=== PATIENT | male | born 1945 | race Caucasian/White ===

== ENCOUNTER → 2017-03-30 | Outpatient (CLI) | payer MEDICARE ==
[~2017-03-30] MED LIST: ALLO100T PO; ASPI81TA23 PO; DULO1CAP2 PO; HYDR-3516; HYDR25TA5 PO; LISI40TA PO; MOBI7.5T PO; TAMS0.4C4 PO; TRAZ100T10 PO
[2017-03-30 09:16] LABS: MEAN CELL VOLUME 86.7 FL (80.0-100.0); MEAN CORPUSCULAR HEMOGLOBIN 29.1 PG (27.0-34.0); MEAN CORPUSCULAR HGB CONC 33.5 % (32.0-36.0); PLATELET COUNT 210 TH/MM3 (150-450); RED BLOOD COUNT 5.19 MIL/MM3 (4.50-5.90); RED CELL DISTRIBUTION WIDTH 13.5 % (11.6-17.2); REVIEW FLAG FINAL; WHITE BLOOD COUNT 6.3 TH/MM3 (4.0-11.0)
[2017-03-30 09:20] LABS: BLOOD, URINE NEG (NEG); GLUCOSE,URINE NEG (NEG); KETONE, URINE NEG (NEG); NITRITE,URINE NEG (NEG); URINE COLOR YELLOW (YELLW/STRAW)
[2017-03-30 09:27] LABS: BACTERIA, URINE OCC /hpf; HYALINE CAST, URINE 0-2 /lpf (RARE); MUCUS URINE FEW /lpf (OCC); RBC, URINE 0-3 /hpf (0-3); WBC, URINE 0-2 /hpf (0-5)
[2017-03-30 09:28] LABS: COMMENT (UR) CULT NOT INDICATED; CULTURE IF INDICATED CULT NOT INDICATED
[2017-03-30 09:30] LABS: APTT (PATIENT) 26.2 SEC (24.3-30.1); INTERNATIONAL NORMALIZED RATIO 0.9 RATIO; PROTHROMBIN TIME - PATIENT 10.4 SEC (9.8-11.6)
[2017-03-30 09:42] LABS: ANION GAP 7 MEQ/L (5-15); AST (GOT) 21 U/L (15-37); BICARBONATE 28.7 MEQ/L (21.0-32.0); BLOOD UREA NITROGEN 21 MG/DL (7-18); CHLORIDE 105 MEQ/L (98-107); GLOMERULAR FILTRATION RATE 98 ML/MIN (>89); GLUCOSE,FASTING 104 MG/DL (74-99); POTASSIUM 3.7 MEQ/L (3.5-5.1); SODIUM (NA) 141 MEQ/L (136-145)
[2017-03-30 09:45] LABS: ALKALINE PHOSPHATASE 63 U/L (45-117); ALT (GPT) 25 U/L (12-78); TOTAL BILIRUBIN ADULT 0.8 MG/DL (0.2-1.0)
== END ==
LOC: CPRE 07:58
PROVIDERS: ATTEND Surgery
DX: Z01.812 Encounter for preprocedural laboratory examination (principal); Z79.01 Long term (current) use of anticoagulants
CPT/HCPCS: 36415; 80053; 81001; 85027; 85610; 85730

== ENCOUNTER 2017-04-06 08:03 | Inpatient (IN) | payer MEDICARE ==
--- NOTE | 2017-03-31 14:02 | MH ---
cc: Jeromy RODGERS M.D. DATE OF ADMISSION: 04/06/2017 ADMITTING DIAGNOSIS: Osteoarthritic degeneration left knee now being admitted for left total knee arthroplasty. ADMISSION HISTORY AND PHYSICAL This pleasant 71-year-old male is being admitted today for left total knee arthroplasty due to severe painful osteoarthritic degeneration left knee. PAST MEDICAL HISTORY: Other past history has arthritis of both knees. He has a history of hypertension. Sciatica. Depression. CURRENT MEDICATIONS Include 1. Duloxetine. 2. Tamsulosin. 3. Lisinopril. 4. He is off his anti-inflammatories. PAST SURGICAL HISTORY: Previous surgeries include no surgical history. REVIEW OF SYSTEMS Noncontributory. FAMILY HISTORY Noncontributory. SOCIAL HISTORY: Does not smoke. Drinks alcohol occasionally. ALLERGIES NO KNOWN DRUG ALLERGIES PHYSICAL EXAMINATION IN GENERAL: We find a 71-year-old male well-developed, well-nourished oriented x3 complain of pain as an deformity left knee. VITAL SIGNS: Blood pressure 128/782, pulse 68 regular, respirations 18, temperature 98.2, pulse oximetry 98% on room air. HEAD, EYES, EARS, NOSE, AND THROAT: Eyes Pupils equal, round, reactive to light and accommodation, extraocular movement intact. Ear, nose, mouth clear. NECK: Supple LUNGS: Clear. HEART: Regular rate. ABDOMEN: The abdomen soft. Positive bowel sounds, nontender. EXTREMITIES: Reveals the left knee to have tenderness, loss of range of motion -5 to 80 degrees of flexion. No medial lateral random post instability, genu valgus deformity noted. He is neurovascularly to his toes. IMPRESSION Osteoarthritic degeneration left knee. PLAN Admission left total knee arthroplasty today. The patient understands procedure well and risks involved understands to use Hibiclens scrub and Bactroban preoperatively and is given a prescription postoperative pain anticoagulation control in the office plans on going home after surgical stay in the hospital. MD KRISH Hutchins/shea /1:41 PM /2:00 PM
[2017-04-05 16:05] VITALS: BP 140/90; PULSE 75; RESP 18; TEMP 96.2; O2SAT 99
[~2017-04-06] VITALS: Ht 175.3 cm; Wt 90.2 kg
[~2017-04-06 08:03] MED LIST changes: -HYDR-3516
[2017-04-06] MEDS ORDERED: POVIDONE IODINE 5% (ANTISEPSIS KIT) 4 APPLICATIONS EACH NARE PRN (09:00)
[2017-04-06] MEDS ORDERED: EXPAREL PERI-ARTICULAR INJECTION (TOTAL VOL. 120 ML) P-ARTICULR SCH ×2 (09:00)
[2017-04-06] MEDS ORDERED: CHLORHEXIDINE GLUCONATE 4% SOLN 120 ML BTL TOPICAL SCH (09:00)
[2017-04-06] MEDS ORDERED: VANCOMYCIN 1000 MG/NS 250 ML (for <70 kg) IV SCH ×2 (09:00)
[2017-04-06] MEDS ORDERED: CHLORHEXIDINE GLUCONATE 2 % 1 PACK (2 CLOTHS) TOPICAL PRN (09:00)
[2017-04-06] MEDS ORDERED: LACTATED RINGER'S 1000 ML IV PRN (09:00)
[2017-04-06] MEDS ORDERED: DEXAMETHASONE SOD PHOS 20 MG/5 ML VIAL IV SCH (09:00)
[2017-04-06] MEDS ORDERED: SODIUM CHLORID 0.9% 500 ML IV PRN (09:00)
[2017-04-06] MEDS ORDERED: ceFAZolin 2 GM PREMIX 50 ML IV SCH (09:00)
[2017-04-06] MEDS ORDERED: METOPROLOL TARTRATE 25 MG TAB PO PRN (09:00)
[2017-04-06] MEDS ORDERED: TRANEXAMIC ACID INJ 902 MG in SODIUM CHLORIDE 0.9% INJ 100 ML IV SCH ×2 (09:00→12:00)
[2017-04-06] MEDS ORDERED: ceFAZolin INJ 1,000 MG VIAL ONE (09:17)
[2017-04-06] MEDS ORDERED: diphenhydrAMINE HCL 50 MG/ML VIAL IV PUSH PRN (10:30)
[2017-04-06] MEDS ORDERED: SODIUM CHLORIDE 0.9% FLUSH 5 ML FLUSH IVF PRN (10:30)
[2017-04-06] MEDS ORDERED: ACETAMINOPHEN/HYDROcodone 325 MG/7.5 MG TAB PO PRN (10:30)
[2017-04-06] MEDS ORDERED: ACETAMINOPHEN 325 MG TAB PO PRN (10:30)
[2017-04-06] MEDS ORDERED: MORPHINE SULFATE 4 MG/ML INJ IV PUSH PRN (10:30)
[2017-04-06] MEDS ORDERED: ONDANSETRON HCL 4 MG/2 ML VIAL IVP PRN (10:30)
[2017-04-06] MEDS ORDERED: TRANEXAMIC ACID INJ 0 MG in SODIUM CHLORIDE 0.9% INJ 100 ML IV SCH (10:30)
[2017-04-06] MEDS ORDERED: Post-op Orders (for Pharmacy) MISC XX ONE (10:30)
[2017-04-06] MEDS ORDERED: NALOXONE HCL 0.4 MG/ML AMP IV PUSH PRN (10:30)
--- NOTE | 2017-04-06 10:30 | HHI.FF ---
Face to Face Verification Diagnosis: (1) Status post total left knee replacement Physical Therapy Gait training Knee: Total knee, Protocol: Left, Gait training, Full weight bearing Canvas Knee Splint: When in bed & 2 pillows btw thighs Nursing RN: 3 days/week x 2 weeks Nursing: Dressing changes Dressing Changes: Daily dressing change, 4x4s, Gauze, Paper tape I have seen patient Irving Strong on 04/06/17. My clinical findings support the need for the requested home health care services because: Limited ability to care for self High risk of falls I certify that my clinical findings support that this patient is homebound because: Unsteady gait/balance Jeromy Christian MD Apr 06, 2017 10:30
[2017-04-06] MEDS ORDERED: BUPIVACAINE LIPOSOME PF 1.3% 20 ML VIAL ONE (10:34)
[2017-04-06] MEDS ORDERED: WALKER WHEELS/F1 MIS (10:35)
[2017-04-06] MEDS ORDERED: CPMMACHINE (10:35)
[2017-04-06] MEDS ORDERED: COMMODE 3-IN-11 MIS (10:35)
[2017-04-06] MEDS ORDERED: PROPOFOL 500 MG/50 ML INJ 50 ML ONE (11:29)
[2017-04-06] MEDS ORDERED: PROPOFOL 500 MG/50 ML INJ 100 ML ONE (11:30)
[2017-04-06] MEDS ORDERED: DO NOT ADM ANY ANTICOAGULANT DRUGS PRN (14:38)
--- NOTE | 2017-04-06 14:39 | HHI.PR ---
Immediate Post Op Note Procedure Date: Apr 06, 2017 Pre Op Diagnosis: Osteoarthritic degeneration left knee Post Op Diagnosis: Osteoarthritic degeneration left knee Surgeon: Jeromy Christian MD Rn Concurrent Review(s): Danii THURMAN Procedure: Left Total Knee Arthroplasty Complications: none Specimen(s) removed: Left knee synovial tissue/crystals Estimated blood loss: 200cc Anesthesia: Spinal Drains: None IVF Urinary Output (mLs): 0 (no albarran) Tourniquet time (min at mmHg) none Patient to: PACU Patient Condition: Good Implant/Devices: SEE IMPLANT LOG (if applicable) Date/Time of Procedure: SEE SURGICAL CARE RECORD Danii Matthews Apr 06, 2017 14:39
[2017-04-06] MEDS: LACTATED RINGER'S 1000 ML INJ 1,000 ML IV SCH ×2 (15:00→21:08)
--- NOTE | 2017-04-06 15:45 | RADRPT ---
EXAM DATE/TIME: 04/06/2017 13:07 [facility] COMPARISON: No previous studies available for comparison. INDICATIONS : Post op left knee. MEDICAL HISTORY : None. SURGICAL HISTORY : ORIF left knee ENCOUNTER: Initial ACUITY: 1 day PAIN SCORE: 0/10 LOCATION: Left knee FINDINGS: The patient is post left knee arthroplasty. The orthopedic hardware is in excellent position. Alignme nt is good there is no fracture. CONCLUSION: 1. Orthopedic hardware in excellent position. Marvel Gasca MD on April 06, 2017 at 15:41 Board Certified Radiologist. This report was verified electronically.
--- NOTE | 2017-04-06 16:23 | MP ---
cc: Jeromy CHRISTIAN M.D. DATE OF SURGERY 04/06/2017 PREOPERATIVE DIAGNOSIS Severe osteoarthritic degeneration with genu valgus deformity, left knee. POSTOPERATIVE DIAGNOSIS Severe osteoarthritic degeneration with genu valgus deformity, left knee. SURGERY PERFORMED Left total knee arthroplasty using Consensus components with B spoke protocol, sizes were 5 femur, 3 tibia, 10 insert, size 3 patella, two batches of DePuy cement. SURGEON Dr. Christian. GO CART MECHANIC OLMAN Rosas. ANESTHESIA Spinal and abductor canal block. PROCEDURE FOLLOWS After successful induction of anesthesia, the patient is placed on the operating room table in the supine position. The knee is prepped and draped in the usual manner. A tourniquet is inflated at the upper thigh and set to 300 mmHg pressure after exsanguination of the lower extremity. A longitudinal incision is made extending from 3 inches proximal to the superior pole of the patella, across the patella in longitudinal fashion, and down past the insertion of the tibial tubercle into the proximal tibia. The incision is carried down through subcutaneous tissue along the medial aspect of the patella and retinaculum, down through the capsule to expose the knee joint. The patella and patellar tendon are freed up enough to allow the patella to be inverted and retracted off the lateral side of the knee joint. The knee joint is left exposed. Small osteophytes are removed. All soft tissue is removed to allow proper position of the femoral and tibial cutting jig guide. The first femoral jig is then inserted along the distal end of the femur after first measuring to decide whether this is a small, medium, or large component. The notch is then drilled and the tibial cutting guide inserted into the femoral cutting guide, along with the ankle brace to allow for proper measurement of the tibial cutting surface that needed to be resected. Pins are inserted into the tibial cutting jig and femoral cutting jig to hold them in place. An oscillating saw is then used to resect the surface of the tibia. The surface of the tibia is then completely removed using sharp and blunt dissection. The anterior and posterior cuts of the femur are then made as well using an oscillating saw through the cutting guide. All guides are then removed and the varus/valgus angulation cutting guide applied to the femur for proper measurement of the proper amount of valgus. The anterior cutting guide for the femur is then inserted at the anterior femoral cuts made. Next, the first block trial is inserted into the femur to allow for proper condyle drill holes to be made which are then made followed by removal of the bone between the condyles using an oscillating saw as well as the bone removed at the most posterior surface of the condyle. After this, this guide is removed and the chamfer cuts made using the chamfer cutting guide from both anterior and posterior. Next, the femoral trial is then inserted, the tibial surface reflected anterior to expose the tibial surface and a tibial stem guide is inserted after first measuring for a standard, standard plus, large, or large plus surface to be used. After the stem is impacted the trial tibial surface is applied followed by the trial meniscal components. After full range of motion is found with the appropriate length meniscal components varying the patella is prepared by resecting the posterior aspect of the patella using an oscillating saw, inserting a trial. The trial is then removed and the cruciate cutting guide applied using the bur to cut the cruciate cuts. After cruciate cuts are made all trials are removed. The wound is irrigated copiously with antibiotic solution and Water Pik and the actual components inserted into place using Consensus components with B spoke protocol, sizes were 5 femur, 3 tibia, 10 insert, size 3 patella, two batches of DePuy cement. After the cement has hardened and the components are found to have full range of motion with no instability. The wound again is irrigated copiously with antibiotic solution, meticulous hemostasis achieved. 120 cc of Exparel used around the joint for extra control, for extra stability. An extra 45 minutes of surgery was needed to stabilize the knee as it was a rotary instability and the medial compartment. This is stated extra repair using #2 FiberWire and the lateral retinacular release as well and some extra tissue on the lateral side by the lateral collateral ligament was removed for better range of motion and good stability. Also, a sample tissue was taken and sent to lab for analysis for possibility of gout. The deep fascia was approximated with running #2 quill subcutaneous tissue approximated using interrupted and running 2-0 and 3-0 Monocryl sutures. Steri-Strips, sterile dressing, knee immobilizer. No drain utilized. Estimated blood loss 200 cc. Sponge and suture count correct. The patient tolerated the procedure well and left the operating room in satisfactory condition and OLMAN Rosas, was present during the entire procedure to include patient positioning and the procedure. The medical necessity of nurse practitioner personal care assistant was indicated in this case due to the surgical complexity and the case itself. During the surgical case the certified surgical technologist was working the back table while my surgical services tech RAMP JOCKEY was directly assisting me. ESTIMATED BLOOD LOSS: 200 cc. COUNTS: Sponge and suture counts were correct. J. MD KRISH Gamez/EO /2:23 PM /4:02 PM
[2017-04-06 19:29] VITALS: O2SAT 98
[2017-04-06 19:30] VITALS: BP 128/78; PULSE 104; RESP 18; TEMP 96.7; O2SAT 97
[2017-04-06] MEDS ORDERED: traZODone HCL 100 MG TAB PO SCH (21:00)
[2017-04-06] MEDS: SODIUM CHLORIDE 0.9% FLUSH 5 ML FLUSH IVF SCH (21:00)
[2017-04-06] MEDS ORDERED: TEMAZEPAM 15 MG CAP PO PRN (21:00)
[2017-04-06] MEDS: ACETAMINOPHEN/HYDROcodone 325 MG/7.5 MG TAB PO PRN (22:24)
[2017-04-06 23:15] VITALS: BP 118/69; PULSE 94; RESP 18; TEMP 97.6; O2SAT 95
[2017-04-07] MEDS: ACETAMINOPHEN/HYDROcodone 325 MG/7.5 MG TAB PO PRN ×4 (02:57→16:25)
[2017-04-07 03:47] VITALS: BP 108/61; PULSE 90; RESP 18; TEMP 96.7; O2SAT 94
[2017-04-07 06:13] LABS: HEMATOCRIT 38.8 % (39.0-51.0); REVIEW FLAG FINAL
[2017-04-07 08:00] VITALS: BP 128/91; PULSE 105; RESP 18; TEMP 96.9; O2SAT 95
[2017-04-07] MEDS: SODIUM CHLORIDE 0.9% FLUSH 5 ML FLUSH IVF SCH (08:17)
[2017-04-07] MEDS ORDERED: LISINOPRIL 20 MG TAB PO SCH (09:00)
[2017-04-07] MEDS ORDERED: HYDROCHLOROTHIAZIDE 25 MG TAB PO SCH (09:00)
[2017-04-07] MEDS ORDERED: DULoxetine HCl DR 30 MG CAP PO SCH (09:00)
[2017-04-07] MEDS ORDERED: ALLOPURINOL 100 MG TAB PO SCH (09:00)
[2017-04-07] MEDS: LACTATED RINGER'S 1000 ML INJ 1,000 ML IV SCH (09:29)
--- NOTE | 2017-04-07 10:49 | PD.ORT.PN ---
Subjective Subjective Remarks Patient is comfortable with no complaints today. Objective Vitals Vital Signs Date Time Temp Pulse Resp B/P (MAP) Pulse Ox O2 Delivery O2 Flow Rate FiO2 04/07/17 08:00 96.9 105 18 128/91 (103) 95 04/07/17 03:47 96.7 90 18 108/61 (77) 94 04/06/17 23:15 97.6 94 18 118/69 (85) 95 04/06/17 19:30 96.7 104 18 128/78 (95) 97 04/06/17 19:29 98 Nasal Cannula 2.00 04/06/17 15:15 74 16 124/76 (92) 99 Nasal Cannula 2 04/06/17 15:00 75 16 118/71 (87) 99 Nasal Cannula 2 04/06/17 14:45 68 16 116/70 (85) 99 Nasal Cannula 2 04/06/17 14:35 97.2 86 16 111/74 (86) 99 Nasal Cannula 2 I/O 04/06/17 04/06/17 04/06/17 04/07/17 04/07/17 04/07/17 07:00 15:00 23:00 07:00 15:00 23:00 Intake Total 2000 ml 460 ml 580 ml Output Total 200 ml 1900 ml Balance 1800 ml -1440 ml 580 ml Intake Oral 360 ml 480 ml IV Total 2000 ml 100 ml 100 ml Output Urine Total 1900 ml Estimated Blood Loss 200 ml # Voids 0 3 # Bowel Movements 0 0 Result Diagram: 04/07/17 0545 Objective Remarks Patient is sitting in a chair. Dressing is dry and intact. He is neurovascularly intact to his toes. No calf tenderness. Assessment & Plan Ortho Post Op Day #: 1 Problem List: Assessment and Plan Patient is doing very well first day postop. He may continue with physical therapy out of bed in daily wound care. Home today with instructions for physical therapy and outpatient care. Follow up in the office for recheck. Jeromy Christian MD Apr 07, 2017 10:49
--- NOTE | 2017-04-07 10:51 | HHI.DS ---
Discharge Summary Admission Date Apr 06, 2017 at 08:22 Discharge Date: Apr 07, 2017 Admitting Diagnosis Osteoarthritic degeneration with valgus deformity left knee. Diagnosis: (1) Status post total left knee replacement Diagnosis: Principal ICD Codes: Z96.652 - Presence of left artificial knee joint Brief History This is a 71 year old male patient CBC/BMP: 04/07/17 0545 Significant Findings Laboratory Tests Test 04/07/17 05:45 Hematocrit 38.8 % (39.0-51.0) PE at Discharge Patient is sitting in a chair. Dressing is dry and intact. He is neurovascularly intact to his toes. No calf tenderness. Hospital Course The patient underwent a left total knee arthroplasty on day of admission. He received a course of prophylactic IV antibiotics and within 23 hours started on anticoagulation therapy. He continued to improve tolerating food and fluid well. He remained afebrile with vital signs stable. He received physical therapy and wound care. He tolerated by mouth pain meds and was discharged in good condition on the first postoperative day with instructions for home healthcare physical therapy and wound care. He also has an appointment for follow-up in the office. Pt Condition on Discharge: Good Discharge Disposition: Disch w/ Home Health Serv Discharge Instructions Diet Instructions: As Tolerated, No Restrictions Activities You Can Perform: Full Weight Bearing, Shower Only-No Bath Activities to Avoid: Bathing, Driving Jeromy Christian MD Apr 07, 2017 10:51
[2017-04-07 11:35] VITALS: O2SAT 96
[2017-04-07 12:00] VITALS: BP 103/74; PULSE 95; RESP 18; TEMP 96.7; O2SAT 95
[2017-04-07] MEDS ORDERED: APIXABAN 2.5 MG TABLET PO SCH (14:00)
[2017-04-07] MEDS ORDERED: TAMSULOSIN HCL 0.4 MG CAP PO SCH (21:00)
[2017-04-07] MEDS ORDERED: MULTIVITAMINS/MINERALS THERAPEUTIC TAB PO SCH (21:00)
[2017-04-07] MEDS ORDERED: DOCUSATE SODIUM 100 MG CAP PO SCH (21:00)
[2017-04-08] MEDS ORDERED: BACITRACIN OINT 0.9 GM PKT TOP PRN (10:15)
== END 2017-04-07 17:04 | disposition home health service (06) | DRG 470 ==
LOC: HSDI 08:22 → N06A 15:47
PROVIDERS: ADMIT Surgery; ATTEND Surgery
PROC: 0SRD0J9 Replacement of Left Knee Joint with Synthetic Substitute, Cemented, Open Approach (ICD-10-PCS; principal; 2017-04-06 11:06)
DX: M17.12 Unilateral primary osteoarthritis, left knee (principal); M21.062 Valgus deformity, not elsewhere classified, left knee; I10 Essential (primary) hypertension; F32.9 Major depressive disorder, single episode, unspecified
CPT/HCPCS: 73560; 76937; 85014; 85018; 86850; 86900; 86901; 88305; 94150; C1776; C9290; J0690; J1100; J3370; J7050; J7120; L1830

== ENCOUNTER → 2017-10-06 | Outpatient (CLI) | payer MEDICARE ==
[~2017-10-06] MED LIST changes: +COMMODE 3-IN-11 MIS; +CPMMACHINE; +WALKER WHEELS/F1 MIS
[2017-10-06 09:38] LABS: BILIRUBIN, URINE NEG (NEG); BLOOD, URINE NEG (NEG); GLUCOSE,URINE NEG (NEG); HYALINE CAST, URINE 2 /lpf (RARE); KETONE, URINE NEG (NEG); MUCUS URINE FEW /lpf (OCC); NITRITE,URINE NEG (NEG); PH, URINE 5.5 (5.0-8.5); URINE COLOR YELLOW (YELLW/STRAW); URINE LEUKOCYTE ESTERASE NEG (NEG)
[2017-10-06 09:42] LABS: PROTHROMBIN TIME - PATIENT 9.8 SEC (9.8-11.6)
[2017-10-06 09:46] LABS: AUTOMATED NEUTROPHIL # 6.6 TH/MM3 (1.8-7.7); BASOPHIL # 0.1 TH/MM3 (0-0.2); BASOPHIL % 0.6 % (0.0-2.0); EOSINOPHIL # 0.1 TH/MM3 (0-0.4); EOSINOPHIL % 0.9 % (0.0-4.0); HEMATOCRIT 44.7 % (39.0-51.0); HEMOGLOBIN 15.3 GM/DL (13.0-17.0); LYMPH % 18.3 % (9.0-44.0); LYMPHOCYTE # 1.7 TH/MM3 (1.0-4.8); MEAN CELL VOLUME 84.9 FL (80.0-100.0); MEAN CORPUSCULAR HEMOGLOBIN 29.1 PG (27.0-34.0); MEAN CORPUSCULAR HGB CONC 34.2 % (32.0-36.0); MEAN PLATELET VOLUME 9.5 FL (7.0-11.0); MONO % 8.1 % (0.0-8.0); MONOCYTE # 0.7 TH/MM3 (0-0.9); NEUT % 72.1 % (16.0-70.0); PLATELET COUNT 234 TH/MM3 (150-450); RED BLOOD COUNT 5.26 MIL/MM3 (4.50-5.90); RED CELL DISTRIBUTION WIDTH 14.1 % (11.6-17.2); WHITE BLOOD COUNT 9.2 TH/MM3 (4.0-11.0)
[2017-10-06 10:12] LABS: ALKALINE PHOSPHATASE 77 U/L (45-117); TOTAL BILIRUBIN ADULT 0.7 MG/DL (0.2-1.0); TOTAL PROTEIN 7.8 GM/DL (6.4-8.2)
[2017-10-06 10:14] LABS: ALT (GPT) 23 U/L (12-78); AST (GOT) 33 U/L (15-37); BICARBONATE 29.1 MEQ/L (21.0-32.0); BLOOD UREA NITROGEN 20 MG/DL (7-18); CALCIUM 9.3 MG/DL (8.5-10.1); CHLORIDE 100 MEQ/L (98-107); CREATININE 1.04 MG/DL (0.60-1.30); GLOMERULAR FILTRATION RATE 70 ML/MIN (>89); GLUCOSE,FASTING 107 MG/DL (74-99); SODIUM (NA) 138 MEQ/L (136-145)
== END ==
LOC: CPRE 08:16
PROVIDERS: ATTEND Surgery
DX: Z01.812 Encounter for preprocedural laboratory examination (principal); M79.609 Pain in unspecified limb
CPT/HCPCS: 36415; 80053; 81001; 85025; 85610; 85730

== ENCOUNTER 2017-10-12 05:19 | Observation (INO) | payer MEDICARE ==
--- NOTE | 2017-10-06 15:13 | MH ---
cc: Jeromy Christian MD DATE OF ADMISSION: 10/12/2017 ADMITTING DIAGNOSIS: Osteoarthritic degeneration, right knee with valgus deformity. REASON FOR ADMISSION: Now for right total knee arthroplasty. HISTORY OF PRESENT ILLNESS: This pleasant 71-year-old male is being admitted today for right total knee arthroplasty due to severe painful osteoarthritic degeneration with valgus deformity. OTHER PAST HISTORY: He recently underwent a left total knee arthroplasty and did well. He has a history of sciatica, depression, back pain, hypertension, as well as the arthritis. CURRENT MEDICATIONS: Include: 1. Tamsulosin. 2. Lisinopril. 3. Duloxetine. 4. [place]. 5. Indomethacin, which is stopped before surgery. PREVIOUS SURGERIES: Other than the left total knee, include no others. REVIEW OF SYSTEMS: Noncontributory. FAMILY HISTORY: Noncontributory. SOCIAL HISTORY: He does not smoke or drink. ALLERGIES: NO KNOWN ALLERGIES. PHYSICAL EXAMINATION: GENERAL: We find a pleasant 71-year-old male, well-developed, well-nourished, oriented x3, complaining of pain in his right knee. VITAL SIGNS: Blood pressure 118/80, pulse 91 and regular, respirations 16, temperature 98.2, pulse oximetry 97% on room air. HEENT: Eyes: PERRLA, EOMI. Ears, nose, and mouth clear. NECK: Supple. LUNGS: Clear. HEART: Regular rate ABDOMEN: Soft. Positive bowel sounds, nontender. EXTREMITIES: Reveal his right knee to have loss of full extension and genu valgus deformities. Neurovascularly intact to his toes. IMPRESSION AT THIS TIME: Severe painful osteoarthritic degeneration, right knee, with valgus deformity. PLAN: Admission for right total knee arthroplasty today. The patient was given prescription for postoperative pain and anticoagulation control in the office. He plans on going home after surgical stay in the hospital. MD KRISH Haile/HOLLAND , 02:38 PM , 03:12 PM
[~2017-10-12] VITALS: Ht 177.8 cm; Wt 90.0 kg
[~2017-10-12 05:19] MED LIST changes: -COMMODE 3-IN-11 MIS; -CPMMACHINE; -WALKER WHEELS/F1 MIS
[2017-10-12] MEDS ORDERED: POVIDONE IODINE 5% (ANTISEPSIS KIT) 4 APPLICATIONS EACH NARE PRN (05:45)
[2017-10-12] MEDS ORDERED: CHLORHEXIDINE GLUCONATE 2 % 1 PACK (2 CLOTHS) TOPICAL PRN (05:45)
[2017-10-12] MEDS ORDERED: DEXAMETHASONE SOD PHOS 20 MG/5 ML VIAL IV PUSH ONE (05:45)
[2017-10-12] MEDS ORDERED: LACTATED RINGER'S 1000 ML IV PRN (05:45)
[2017-10-12] MEDS ORDERED: SODIUM CHLORID 0.9% 500 ML IV PRN (05:45)
[2017-10-12] MEDS ORDERED: METOPROLOL TARTRATE 25 MG TAB PO PRN (05:45)
[2017-10-12] MEDS ORDERED: ceFAZolin 2 GM PREMIX 50 ML IV SCH (06:00)
[2017-10-12] MEDS ORDERED: VANCOMYCIN 1 GM/200 ML PREMIX IV SCH (06:00)
[2017-10-12] MEDS ORDERED: CHLORHEXIDINE GLUCONATE 4% SOLN 120 ML BTL TOPICAL SCH (06:00)
[2017-10-12 06:05] VITALS: PULSE 75
[2017-10-12] MEDS ORDERED: BUPIVACAINE LIPOSO PF 1.3% INJ 20 ML, BUPIVACAINE PF 0.25% INJ 20 ML in SODIUM CHLORIDE... P-ARTICULR SCH (06:15)
[2017-10-12] MEDS ORDERED: ceFAZolin INJ 1,000 MG VIAL ONE (06:22)
[2017-10-12] MEDS ORDERED: FAT EMULSION 20% INJ 0 ML ONE (06:23)
[2017-10-12] MEDS ORDERED: LIDOCAINE HCL 1% PF 5 ML AMPULE ONE (06:57)
[2017-10-12] MEDS ORDERED: BUPIVACAINE PF 0.75% DEX-WATER INJ 2 ML AMP ONE (06:57)
[2017-10-12] MEDS ORDERED: MIDAZOLAM HCL 2 MG/2 ML VIAL ONE (06:58)
[2017-10-12] MEDS ORDERED: FAMOTIDINE 20 MG/2 ML VIAL ONE (06:58)
[2017-10-12] MEDS ORDERED: BUPIVACAINE LIPOSOME PF 1.3% 20 ML VIAL ONE (07:01)
[2017-10-12] MEDS ORDERED: FAMOTIDINE 20 MG/2 ML VIAL IV ONE (07:30)
[2017-10-12] MEDS ORDERED: TRANEXAMIC ACID INJ 909 MG in SODIUM CHLORIDE 0.9% INJ 100 ML IV SCH ×2 (07:30→10:30)
[2017-10-12] MEDS ORDERED: MIDAZOLAM HCL 2 MG/2 ML VIAL IV ONE (07:30)
--- NOTE | 2017-10-12 07:44 | HHI.FF ---
Face to Face Verification Diagnosis: (1) Status post total right knee replacement Physical Therapy Gait training Knee: Total knee, Protocol: Right, Gait training, Full weight bearing Canvas Knee Splint: When in bed & 2 pillows btw thighs Nursing RN: 3 days/week x 2 weeks Dressing Changes: Do not change dressing I have seen patient Irving Strong on 10/12/17. My clinical findings support the need for the requested home health care services because: Limited ability to care for self High risk of falls I certify that my clinical findings support that this patient is homebound because: Unsteady gait/balance Jeromy Christian MD Oct 12, 2017 07:44
[2017-10-12] MEDS ORDERED: ONDANSETRON HCL 4 MG/2 ML VIAL IVP PRN (07:45)
[2017-10-12] MEDS ORDERED: ACETAMINOPHEN 325 MG TAB PO PRN (07:45)
[2017-10-12] MEDS ORDERED: TRANEXAMIC ACID INJ 0 MG in SODIUM CHLORIDE 0.9% INJ 100 ML IV SCH (07:45)
[2017-10-12] MEDS ORDERED: CPMMACHINE (07:45)
[2017-10-12] MEDS ORDERED: NALOXONE HCL 0.4 MG/ML AMP IV PUSH PRN (07:45)
[2017-10-12] MEDS ORDERED: TEMAZEPAM 15 MG CAP PO PRN (07:45)
[2017-10-12] MEDS ORDERED: Post-op Orders (for Pharmacy) XX ONE (07:45)
[2017-10-12] MEDS ORDERED: diphenhydrAMINE HCL 50 MG/ML VIAL IV PUSH PRN (07:45)
[2017-10-12] MEDS: HYDROCHLOROTHIAZIDE 25 MG TAB PO SCH (09:00)
[2017-10-12] MEDS: ASPIRIN EC 81 MG TABEC PO SCH (09:00)
[2017-10-12] MEDS: DULoxetine HCl DR 60 MG CAP PO SCH (09:00)
[2017-10-12] MEDS: ALLOPURINOL 100 MG TAB PO SCH (09:00)
[2017-10-12] MEDS: LISINOPRIL 20 MG TAB PO SCH (09:00)
[2017-10-12] MEDS ORDERED: DO NOT ADM ANY ANTICOAGULANT DRUGS PRN (10:23)
[2017-10-12] MEDS: LACTATED RINGER'S 1000 ML INJ 1,000 ML IV SCH ×2 (10:50→20:30)
--- NOTE | 2017-10-12 10:57 | MP ---
cc: Jeromy Christian MD DATE OF OPERATION: 10/12/2017 DATE OF SURGERY: 10/12/2017. PREOPERATIVE DIAGNOSIS: Osteoarthritic degeneration with valgus deformity, right knee. POSTOPERATIVE DIAGNOSIS: Osteoarthritic degeneration with valgus deformity, right knee. PROCEDURE PERFORMED: Right total knee arthroplasty using Consensus components, size 6 femur, 3 tibia, 10 insert and 2 patella with 2 batches of DePuy cement. SURGEON: Jeromy Christian MD WEARING APPAREL SHAKER: Danii Matthews MD ANESTHESIA: Spinal. PROCEDURE: After successful induction of anesthesia, the patient is placed on the operating room table in the supine position. The knee is prepped and draped in the usual manner. A tourniquet is inflated at the upper thigh and set to 300 mmHg pressure after exsanguination of the lower extremity. A longitudinal incision is made extending from 3 inches proximal to the superior pole of the patella, across the patella in longitudinal fashion, and down past the insertion of the tibial tubercle into the proximal tibia. The incision is carried down through subcutaneous tissue along the medial aspect of the patella and retinaculum, down through the capsule to expose the knee joint. The patella and patellar tendon are freed up enough to allow the patella to be inverted and retracted off the lateral side of the knee joint. The knee joint is left exposed. Small osteophytes are removed. All soft tissue is removed to allow proper position of the femoral and tibial cutting jig guide. The first femoral jig is then inserted along the distal end of the femur after first measuring to decide whether this is a small, medium, or large component. The notch is then drilled and the tibial cutting guide inserted into the femoral cutting guide, along with the ankle brace to allow for proper measurement of the tibial cutting surface that needed to be resected. Pins are inserted into the tibial cutting jig and femoral cutting jig to hold them in place. An oscillating saw is then used to resect the surface of the tibia. The surface of the tibia is then completely removed using sharp and blunt dissection. The anterior and posterior cuts of the femur are then made as well using an oscillating saw through the cutting guide. All guides are then removed and the varus/valgus angulation cutting guide applied to the femur for proper measurement of the proper amount of valgus. The anterior cutting guide for the femur is then inserted at the anterior femoral cuts made. Next, the first block trial is inserted into the femur to allow for proper condyle drill holes to be made which are then made followed by removal of the bone between the condyles using an oscillating saw as well as the bone removed at the most posterior surface of the condyle. After this, this guide is removed and the chamfer cuts made using the chamfer cutting guide from both anterior and posterior. Next, the femoral trial is then inserted, the tibial surface reflected anterior to expose the tibial surface and a tibial stem guide is inserted after first measuring for a standard, standard plus, large, or large plus surface to be used. After the stem is impacted the trial tibial surface is applied followed by the trial meniscal components. After full range of motion is found with the appropriate length meniscal components varying the patella is prepared by resecting the posterior aspect of the patella using an oscillating saw, inserting a trial. The trial is then removed and the cruciate cutting guide applied using the bur to cut the cruciate cuts. After cruciate cuts are made all trials are removed. The wound is irrigated copiously with antibiotic solution and Water Pik and the actual components inserted into place using the aforementioned Consensus components, size 6 femur, 3 tibia, 10 insert and 2 patella with 2 batches of DePuy cement using the Consensus MRI designed cutting jigs. After the cement has hardened and the components are found to have full range of motion with no instability, the tourniquet is deflated, total tourniquet time being 58 minutes at 300 mmHg pressure. The wound again is irrigated copiously with antibiotic solution, meticulous hemostasis achieved and 60 mL of a mixture of Exparel, 0.25% Marcaine plain and Decadron injected around the knee joint for extra pain control. The deep fascia was approximated with running #0 Ethibond suture and interrupted #1 Vicryl suture, the subcutaneous tissue approximated using running and interrupted 2-0 and 3-0 Monocryl sutures, and Primapore dressing and knee immobilizer. DRAINS: No drain utilized. ESTIMATED BLOOD LOSS: 100 mL COUNTS: Sponge and suture counts correct. CONDITION: The patient tolerated the procedure well and left the operating room in satisfactory condition. NOTE: OLMAN Rosenthal, was present during the entire procedure to include patient positioning and the procedure. The medical necessity of the nurse practitioner dairy and food laboratory assistant was indicated in this case due to the surgical complexity of the case itself. During the surgical case, the dialysis equipment technician was working the back table while my assistant professor surgical technology OLMAN was directly assisting me. J. MD KRISH Rojas/HOLLAND , 10:05 AM , 10:56 AM
--- NOTE | 2017-10-12 11:06 | RADRPT ---
EXAM DATE: 10/12/2017 10:49 AM EDT AGE/SEX: 72 years / Male INDICATIONS: Post op right knee. CLINICAL DATA: This is the patient's initial encounter. Patient reports that signs and symptoms have been present for 1 day and indicates a pain score of Nonresponsive. MEDICAL/SURGICAL HISTORY: None. Total knee replacement, right. COMPARISON: [facility] [place], KNEE LEFT LTD (1 OR 2VWS), 04/06/2017. . FINDINGS: Total knee arthroplasty. All 3 components are appropriately positioned without fracture. There is den se athetotic calcification of the regional vasculature. In addition, amorphous calcification projects behind the femoral condyle and proximal tibia. Some of this may be contiguous with the vascular calc ification. CONCLUSION: 1. Total knee arthroplasty. All 3 components are properly positioned without fracture. 2. Dense atherosclerotic calcification of the regional vasculature. 3. Amorphous calcification in the posterior knee joint. Diagnostic considerations include popliteal artery aneurysm or possible calcification of the regional soft tissues. CT scan of the knee could be performed for further characterization if clinically warranted. Electronically signed by: Shawn Long MD 10/12/2017 11:05 AM EDT
[2017-10-12 12:00] VITALS: BP 153/87; PULSE 66; RESP 17; TEMP 97.9; O2SAT 99
[2017-10-12] MEDS ORDERED: LIDOCAINE HCL 1% PF 5 ML SYRINGE OTHER ONE (12:00)
[2017-10-12] MEDS ORDERED: PROPOFOL 200 MG/20 ML AMP IV ONE (12:00)
[2017-10-12] MEDS ORDERED: PHENYLEPH/NS 1000 MCG/10 ML SYR IV ONE (12:00)
[2017-10-12] MEDS: ACETAMINOPHEN/HYDROcodone 325 MG/7.5 MG TAB PO PRN ×3 (13:32→20:50)
[2017-10-12 16:00] VITALS: BP 144/80; PULSE 110; RESP 17; TEMP 97.6; O2SAT 96
--- NOTE | 2017-10-12 16:05 | PD.CONS ---
[facility] Request[facility] By DR Alicia RODGERS Reason for Consult MEDICAL MANAGEMENT Primary Care Physician Natalya Ravi MD Diagnoses: (1) Osteoarthritis of right knee (2) Osteoarthritis of left knee (3) Depression (4) Sciatica (5) Hypertension History of Present Illness Patient is a 72-year-old male. Who underwent a right total knee arthroplasty due to severe osteoarthritis of the right knee. We have now been asked to consult regarding medical management. Patient will be followed throughout the admission until he is discharged which more than likely will be tomorrow. Patient is scheduled to go home with home health care. Patient currently has a CPM machine in place for the right lower extremity Review of Systems Constitutional: DENIES: Diaphoretic episodes, Fatigue, Fever, Weight gain, Weight loss, Chills, Dizziness, Change in appetite, Night Sweats Endocrine: DENIES: Heat/cold intolerance, Polydipsia, Polyuria, Polyphagia Eyes: DENIES: Blurred vision, Diplopia, Eye inflammation, Eye pain, Vision loss , Photosensitivity, Double Vision Ears, nose, mouth, throat: DENIES: Tinnitus, Hearing loss, Vertigo, Nasal discharge, Oral lesions, Throat pain, Hoarseness, Ear Pain, Running Nose, Epistaxis Respiratory: DENIES: Apneas, Cough, Snoring, Wheezing, Hemoptysis, Sputum production Cardiovascular: DENIES: Chest pain, Palpitations, Syncope, Dyspnea on Exertion , PND, Lower Extremity Edema, Orthopnea, Claudication Gastrointestinal: DENIES: Abdominal pain, Black stools, Bloody stools, Constipation, Diarrhea, Nausea, Vomiting, Difficulty Swallowing, Anorexia Genitourinary: DENIES: Sexual dysfunction, Urinary frequency, Urinary incontinence, Urgency, Hematuria, Dysuria, Nocturia Musculoskeletal: COMPLAINS OF: Joint pain, Back pain, DENIES: Muscle aches, Stiffness, Joint Swelling, Neck pain Integumentary: DENIES: Abnormal pigmentation, Nail changes, Pruritus, Rash Hematologic/lymphatic: DENIES: Bruising, Lymphadenopathy Immunologic/allergic: DENIES: Eczema, Urticaria Neurologic: COMPLAINS OF: Abnormal gait, Poor Balance, DENIES: Headache, Localized weakness, Paresthesias, Seizures, Speech Problems, Tremor Psychiatric: DENIES: Anxiety, Confusion, Mood changes, Depression, Hallucinations, Agitation, Suicidal Ideation, Homicidal Ideation, Delusions Except as stated in HPI: all other systems reviewed are Neg Past Family Social History Allergies: Coded Allergies: No Known Allergies (Verified Allergy, Unknown, 04/06/17) Past Medical History History of TIA, CVA Hypertension Genitourinary symptoms BPH Depression Past Surgical History Cataract surgery history of left total knee replacement Reported Medications Reported Meds & Active Scripts Active CPM-Continuous Passive Motion Machine 1 Ea Device Ea .XX DIRECTED Reported Aspirin EC (Aspirin) 81 Mg Tabdr 81 Mg PO DAILY Mobic (Meloxicam) 7.5 Mg Tab 7.5 Mg PO DAILY Trazodone (Trazodone HCl) 100 Mg Tablet 100 Mg PO HS Lisinopril 40 Mg Tab 40 Mg PO DAILY Tamsulosin (Tamsulosin HCl) 0.4 Mg Cap 0.4 Mg PO HS PRN Duloxetine DR (Duloxetine HCl) 30 Mg Capdr 60 Mg PO DAILY Hydrochlorothiazide 25 Mg Tab 25 Mg PO DAILY Allopurinol 100 Mg Tab 100 Mg PO DAILY Active Ordered Medications Current Medications Lactated Ringer's 1,000 ml @ 30 mls/hr Q24H PRN IV SEE LABEL COMMENTS Last administered on 10/12/17at 05:50; Start 10/12/17 at 05:45; Stop 10/15/17 at 05:44 Sodium Chloride 500 ml @ 30 mls/hr [id number] PRN IV SEE LABEL COMMENTS; Start 10/12/17 at 05:45; Stop 10/15/17 at 05:44 Metoprolol Tartrate (Lopressor) 25 mg COMPLAINT EVALUATION OFFICER PRN PO SEE LABEL COMMENTS; Start 10/12/17 at 05:45; Stop 10/15/17 at 05:44 Povidone Iodine (Betadine 5% Antisepsis Kit) 1 applic COMPLAINT EVALUATION OFFICER PRN EACH NARE SEE LABEL COMMENTS Last administered on 10/12/17at 06:10; Start 10/12/17 at 05:45; Stop 10/15/17 at 05:44 Chlorhexidine Gluconate (Chlorhexidine 2% Cloth) 3 pack COMPLAINT EVALUATION OFFICER PRN TOPICAL SEE LABEL COMMENTS Last administered on 10/12/17at 05:35; Start 10/12/17 at 05:45; Stop 10/15/17 at 05:44 Chlorhexidine Gluconate (Hibiclens 4% Top Soln) 1 applic ONCE TOPICAL Last administered on 10/12/17at 06:11; Start 10/12/17 at 06:00; Stop 10/15/17 at 05:59 Dexamethasone Sodium Phosphate (Decadron Inj) 10 mg ONCE ONCE IV PUSH Last administered on 10/12/17at 06:15; Start 10/12/17 at 05:45; Stop 10/12/17 at 05:48; Status DC Cefazolin Sodium/ Dextrose 50 ml @ 100 mls/hr COMPLAINT EVALUATION OFFICER IV Last administered on 10/12/17at 07:46; Start 10/12/17 at 06:00; Stop 10/12/17 at 21:00 Tranexamic Acid 909 mg/Sodium Chloride 109.09 ml @ 200 mls/ hr ONCE IV Last administered on 10/12/17at 07:51; Start 10/12/17 at 07:30; Stop 10/12/17 at 21:00 Tranexamic Acid 909 mg/Sodium Chloride 109.09 ml @ 200 mls/ hr ONCE IV ; Start 10/12/17 at 10:30; Stop 10/12/17 at 21:00 Vancomycin/Sodium Chloride 200 ml @ 200 mls/hr ONCE IV Last administered on 10/12/17at 06:12; Start 10/12/17 at 06:00; Stop 10/12/17 at 21:00 Bupivacaine Liposome 20 ml/ Bupivacaine HCl 20 ml/Sodium Chloride 120 ml @ 240 mls/hr ONCE P-ARTICULR Last administered on 10/12/17at 09:29; Start 10/12/17 at 06 :15; Stop 10/12/17 at 13:00; Status DC Cefazolin Sodium (Ancef Inj) 2,000 mg STK-MED ONCE .ROUTE Last administered on 10/12/17at 08:19; Start 10/12/17 at 06:22; Stop 10/12/17 at 06:23; Status DC Fat Emulsion Intravenous 0 ml @ As Directed STK-MED ONCE .ROUTE ; Start 10/12/17 at 06:23; Stop 10/12/17 at 06:24; Status DC Lidocaine HCl (Xylocaine-Mpf 1% Inj) 5 ml STK-MED ONCE .ROUTE ; Start 10/12/17 at 06:57; Stop 10/12/17 at 06:58; Status DC Bupivacaine HCl/ Dextrose (Marcaine Spinal Inj) 2 ml STK-MED ONCE .ROUTE ; Start 10/12/17 at 06:57; Stop 10/12/17 at 06:58; Status DC Fentanyl Citrate (fentaNYL INJ) 100 mcg STK-MED ONCE .ROUTE ; Start 10/12/17 at 06:57; Stop 10/12/17 at 06:58; Status DC Midazolam HCl (Versed Inj) 2 mg STK-MED ONCE .ROUTE ; Start 10/12/17 at 06:58; Stop 10/12/17 at 06:59; Status DC Famotidine (Pepcid Inj) 20 mg STK-MED ONCE .ROUTE Last administered on at 07:04; Start 10/12/17 at 06:58; Stop 10/12/17 at 06:59; Status DC Bupivacaine Liposome (Exparel Pf 1.3% Inj) 20 ml STK-MED ONCE .ROUTE ; Start 10/12/17 at 07:01; Stop 10/12/17 at 07:02; Status DC Famotidine (Pepcid Inj) 20 mg ONCE ONCE IV ; Start 10/12/17 at 07:30; Stop at 07:31; Status DC Midazolam HCl (Versed Inj) 2 mg ONCE ONCE IV Last administered on 10/12/17at 07: 26; Start 10/12/17 at 07:30; Stop 10/12/17 at 07:31; Status DC Fentanyl Citrate (fentaNYL INJ) 100 mcg ONCE ONCE IV ; Start 10/12/17 at 07:30; Stop 10/12/17 at 07:31; Status DC Allopurinol (Zyloprim) 100 mg DAILY PO ; Start 10/12/17 at 09:00 Aspirin (Ecotrin Ec) 81 mg DAILY PO ; Start 10/12/17 at 09:00 Duloxetine HCl (Cymbalta Dr) 60 mg DAILY PO ; Start 10/12/17 at 09:00 Hydrochlorothiazide (Hydrodiuril) 25 mg DAILY PO ; Start 10/12/17 at 09:00 Tamsulosin HCl (Flomax) 0.4 mg HS PO ; Start 10/12/17 at 21:00 Lisinopril (Prinivil) 40 mg DAILY PO ; Start 10/12/17 at 09:00 Trazodone HCl (Desyrel) 100 mg HS PO ; Start 10/12/17 at 21:00 Lactated Ringer's 1,000 ml @ 80 mls/hr [id number] IV Last administered on at 10:50; Start 10/12/17 at 08:00 Cefazolin Sodium 1000 mg/Sodium Chloride 100 ml @ 200 mls/hr Q6H IV Last administered on 10/12/17at 13:31; Start 10/12/17 at 14:00; Stop 10/13/17 at 02:29 Miscellaneous Information ([facility] Post-op Orders (for Pharmacy)) STAT ONCE XX ; Start 10/12/17 at 07:45; Stop 10/12/17 at 08:26; Status DC Enoxaparin Sodium (Lovenox Inj) 30 mg Q12H SQ ; Start 10/13/17 at 08:00 Acetaminophen/ Hydrocodone Bitart ([place] 7.5-325 Mg) 1 tab Q4H PRN PO PAIN LESS THAN 5 ON SCALE Last administered on 10/12/17at 13:32; Start 10/12/17 at 07:45 Acetaminophen/ Hydrocodone Bitart ([place] 7.5-325 Mg) 2 tab Q4H PRN PO PAIN SCALE 5 TO 10; Start 10/12/17 at 07:45 Acetaminophen (Tylenol) 650 mg Q6H PRN PO temp over 101; Start 10/12/17 at 07: 45 Tranexamic Acid / Sodium Chloride 100 ml @ 200 mls/hr UNSCH IV ; Start 10/12/17 at 07:45; Stop 10/12/17 at 08:23; Status DC Multivitamins/ Minerals Therapeutic (Theragran M Tab) 1 tab BID PO ; Start at 21:00; Stop 12/12/17 at 20:59 Ondansetron HCl (Zofran Inj) 4 mg Q6H PRN IVP NAUSEA OR VOMITING; Start at 07:45 Docusate Sodium (Colace) 100 mg BID PO ; Start 10/13/17 at 21:00 Temazepam (Restoril) 15 mg HS PRN PO SLEEP; Start 10/12/17 at 07:45 Bacitracin (Bacitracin Oint Packet) 0.9 gm UNSCH X1 PRN TOP WOUND CARE; Start 10/14/17 at 10:15; Stop 10/16/17 at 10:14 Naloxone HCl (Narcan Inj) 0.4 mg UNSCH PRN IV PUSH RESPIRATORY RATE LESS THAN 10; Start 10/12/17 at 07:45 Diphenhydramine HCl (Benadryl Inj) 25 mg Q6H PRN IV PUSH ITCHING; Start at 07:45 Miscellaneous Information ([facility] Nursing Information) ALL NURSING DEPARTME... UNSCH PRN .XX SEE LABEL COMMENTS; Start 10/12/17 at 10:23; Stop 10/13/17 at 10:22 Family History Hypertension Social History Denies any tobacco alcohol or illicit Physical Exam Vital Signs Vital Signs Date Time Temp Pulse Resp B/P (MAP) Pulse Ox O2 Delivery O2 Flow Rate FiO2 10/12/17 12:00 97.9 66 17 153/87 (109) 99 10/12/17 11:55 82 14 131/82 (98) 98 Room Air 10/12/17 11:45 85 14 140/88 (105) 98 Room Air 10/12/17 11:30 74 14 133/83 (100) 100 Room Air 10/12/17 11:15 69 14 136/87 (103) 100 Room Air 10/12/17 11:00 70 14 119/73 (88) 100 Room Air 10/12/17 10:45 74 14 127/74 (91) 100 Room Air 10/12/17 10:23 97.5 84 14 129/85 (100) 95 Room Air 10/12/17 06:05 100 Nasal Cannula 2 10/12/17 06:05 97.7 72 20 150/80 (103) 100 10/12/17 06:05 75 Physical Exam GENERAL: This is a well-nourished, well-developed patient, in no apparent distress. SKIN: No rashes, ecchymoses or lesions. Cool and dry. HEAD: Atraumatic. Normocephalic. No temporal or scalp tenderness. EYES: Pupils equal round and reactive. Extraocular motions intact. No scleral icterus. No injection or drainage. ENT: Nose without bleeding, purulent drainage or septal hematoma. Throat without erythema, tonsillar hypertrophy or exudate. Uvula midline. Airway patent. NECK: Trachea midline. No JVD or lymphadenopathy. Supple, nontender, no meningeal signs. CARDIOVASCULAR: Regular rate and rhythm without murmurs, gallops, or rubs. S1- S2 no S3 or S4 RESPIRATORY: Clear to auscultation. Breath sounds equal bilaterally. No wheezes , rales, or rhonchi. GASTROINTESTINAL: Abdomen soft, non-tender, nondistended. No hepato-splenomegaly , or palpable masses. No guarding. MUSCULOSKELETAL: Extremities without clubbing, cyanosis, or edema. No joint tenderness, effusion, or edema noted. No calf tenderness. Negative Homans sign bilaterally. Right lower extremity is dressed is in CPM machine NEUROLOGICAL: Awake and alert. Cranial nerves II through XII intact. Motor and sensory grossly within normal limits. Five out of 5 muscle strength in all muscle groups. Normal speech. Insight and judgment is good Mood and behaviors are appropriate Imaging Last Impressions Knee X-Ray 10/12/17 3854 Signed Impressions: CONCLUSION: 1. Total knee arthroplasty. All 3 components are properly positioned without f racture. 2. Dense atherosclerotic calcification of the regional vasculature. 3. Amorphous calcification in the posterior knee joint. Diagnostic considerati ons include popliteal artery aneurysm or possible calcification of the regional soft tissues. CT scan of the knee could be performed for further characterizat ion if clinically warranted. Assessment and Plan Problem List: (1) Status post total right knee replacement ICD Code: Z96.651 - Presence of right artificial knee joint (2) Osteoarthritis of right knee ICD Code: M17.11 - Unilateral primary osteoarthritis, right knee (3) Depression ICD Code: F32.9 - Major depressive disorder, single episode, unspecified (4) Sciatica ICD Code: M54.30 - Sciatica, unspecified side (5) Hypertension ICD Code: I10 - Essential (primary) hypertension Assessment and Plan Status post right total knee arthroplasty due to severe osteoarthritis of the right knee Hypertension continue on home medications with lisinopril BPH continue on Flomax Depression continue on duloxetine Back pain continue on duloxetine and [place] as needed and indomethacin Osteoarthritis continue on pain medications History of left total knee arthroplasty. We will get a.m. labs Code Status Full code Discussed Condition With RN and patient JanisBrent goldmanVictorina INGRAM Oct 12, 2017 16:05
--- NOTE | 2017-10-12 17:10 | HHI.PR ---
Immediate Post Op Note Procedure Date: Oct 12, 2017 Pre Op Diagnosis: Osteoarthritic degeneration, right knee with valgus deformity Post Op Diagnosis: Osteoarthritic degeneration, right knee with valgus deformity Surgeon: Jeromy Christian MD Mold Press Operator(s): Danii THURMAN Procedure: Right Total Knee Arthroplasty Complications: none Specimen(s) removed: none Estimated blood loss: 100cc Anesthesia: Spinal Drains: None IVF Urinary Output (mLs): 0 (NO albarran) Tourniquet time (min at mmHg) 56 mins at 300mmHg Patient to: PACU Patient Condition: Good Implant/Devices: SEE IMPLANT LOG (if applicable) Date/Time of Procedure: SEE SURGICAL CARE RECORD Danii Matthews Oct 12, 2017 17:10
[2017-10-12 20:15] VITALS: BP 152/89; PULSE 81; RESP 17; TEMP 97.2; O2SAT 96
[2017-10-12] MEDS: traZODone HCL 100 MG TAB PO SCH (20:37)
[2017-10-12] MEDS: TAMSULOSIN HCL 0.4 MG CAP PO SCH (20:37)
[2017-10-13] VITALS (7 sets, daily range): BP systolic 109–138; BP diastolic 59–77; PULSE 82–107; RESP 16–18; TEMP 97.2–98.2; O2SAT 94–97
[2017-10-13] MEDS: ACETAMINOPHEN/HYDROcodone 325 MG/7.5 MG TAB PO PRN ×5 (01:09→17:57)
[2017-10-13 05:10] LABS: AUTOMATED NEUTROPHIL # 7.7 TH/MM3 (1.8-7.7); BASOPHIL % 0.2 % (0.0-2.0); EOSINOPHIL % 0.1 % (0.0-4.0); HEMATOCRIT 35.7 % (39.0-51.0); HEMOGLOBIN 12.2 GM/DL (13.0-17.0); LYMPH % 12.5 % (9.0-44.0); LYMPHOCYTE # 1.2 TH/MM3 (1.0-4.8); MEAN CELL VOLUME 84.5 FL (80.0-100.0); MEAN CORPUSCULAR HGB CONC 34.3 % (32.0-36.0); MEAN PLATELET VOLUME 9.4 FL (7.0-11.0); MONO % 10.3 % (0.0-8.0); NEUT % 76.9 % (16.0-70.0); PLATELET COUNT 210 TH/MM3 (150-450); RED BLOOD COUNT 4.22 MIL/MM3 (4.50-5.90); RED CELL DISTRIBUTION WIDTH 13.9 % (11.6-17.2)
[2017-10-13 05:51] LABS: AST (GOT) 13 U/L (15-37); BICARBONATE 25.9 MEQ/L (21.0-32.0); BLOOD UREA NITROGEN 14 MG/DL (7-18); CALCIUM 8.6 MG/DL (8.5-10.1); CHLORIDE 106 MEQ/L (98-107); CREATININE 0.78 MG/DL (0.60-1.30); GLOMERULAR FILTRATION RATE 98 ML/MIN (>89); GLUCOSE,RANDOM 114 MG/DL (74-106); MAGNESIUM 1.9 MG/DL (1.5-2.5); SODIUM (NA) 141 MEQ/L (136-145)
[2017-10-13 06:02] LABS: ALKALINE PHOSPHATASE 59 U/L (45-117); ALT (GPT) 18 U/L (12-78); FREE T4 1.05 NG/DL (0.76-1.46); PHOSPHORUS 2.8 MG/DL (2.5-4.9); TOTAL BILIRUBIN ADULT 0.6 MG/DL (0.2-1.0); TOTAL PROTEIN 5.9 GM/DL (6.4-8.2)
--- NOTE | 2017-10-13 09:28 | PD.ORT.PN ---
Subjective Subjective Remarks Patient painful about knee today but still wants to go home later today. Objective Vitals Vital Signs Date Time Temp Pulse Resp B/P (MAP) Pulse Ox O2 Delivery O2 Flow Rate FiO2 10/13/17 08:00 97.4 82 16 130/67 (88) 94 10/13/17 04:00 97.9 83 16 109/77 (88) 97 10/13/17 00:00 97.4 82 16 131/76 (94) 97 10/12/17 20:15 97.2 81 17 152/89 (110) 96 10/12/17 16:00 97.6 110 17 144/80 (101) 96 10/12/17 12:00 97.9 66 17 153/87 (109) 99 10/12/17 11:55 82 14 131/82 (98) 98 Room Air 10/12/17 11:45 85 14 140/88 (105) 98 Room Air 10/12/17 11:30 74 14 133/83 (100) 100 Room Air 10/12/17 11:15 69 14 136/87 (103) 100 Room Air 10/12/17 11:00 70 14 119/73 (88) 100 Room Air 10/12/17 10:45 74 14 127/74 (91) 100 Room Air 10/12/17 10:23 97.5 84 14 129/85 (100) 95 Room Air I/O 10/12/17 10/12/17 10/12/17 10/13/17 10/13/17 10/13/17 07:00 15:00 23:00 07:00 15:00 23:00 Intake Total 2000 ml 360 ml 250 ml Output Total 3100 ml 600 ml Balance -1100 ml 360 ml -350 ml Intake Oral 360 ml 250 ml Other 2000 ml Output Urine Total 600 ml Estimated Blood Loss 100 ml Other 3000 ml Bladder Scan Volume Amount 758 ml Result Diagram: 10/13/17 0431 10/13/17 0431 Imaging Last 48 hours Impressions Knee X-Ray 10/12/17 0765 Signed Impressions: CONCLUSION: 1. Total knee arthroplasty. All 3 components are properly positioned without f racture. 2. Dense atherosclerotic calcification of the regional vasculature. 3. Amorphous calcification in the posterior knee joint. Diagnostic considerati ons include popliteal artery aneurysm or possible calcification of the regional soft tissues. CT scan of the knee could be performed for further characterizat ion if clinically warranted. Objective Remarks Knee immoblizer not on correctly. NV intact.No calf tenderness. Assessment & Plan Ortho Post Op Day #: 1 Problem List: Assessment and Plan PT then home today. Switch anticoagulation to Eliquis. Jeromy Christian MD Oct 13, 2017 09:28
[2017-10-13] MEDS: DULoxetine HCl DR 60 MG CAP PO SCH (09:30)
[2017-10-13] MEDS: ALLOPURINOL 100 MG TAB PO SCH (09:32)
[2017-10-13] MEDS: HYDROCHLOROTHIAZIDE 25 MG TAB PO SCH (09:32)
[2017-10-13] MEDS: ASPIRIN EC 81 MG TABEC PO SCH (09:32)
[2017-10-13] MEDS: LISINOPRIL 20 MG TAB PO SCH (09:32)
[2017-10-13] MEDS ORDERED: ENOXAPARIN SODIUM 30 MG/0.3 ML SYRINGE SQ SCH (10:00)
[2017-10-13] MEDS: HYDROmorphone HCL PF 2 MG/ML VIAL IV PRN (11:30)
[2017-10-13] MEDS: APIXABAN 2.5 MG TABLET PO SCH ×2 (13:35→19:49)
[2017-10-13 16:52] LABS: HEMOGLOBIN A1C 5.2 % (4.3-6.0)
--- NOTE | 2017-10-13 17:13 | RADRPT ---
EXAM DATE: 10/13/2017 5:07 PM EDT AGE/SEX: 72 years / Male INDICATIONS: Right knee pain, follow up post op yesterday. CLINICAL DATA: This is the patient's initial encounter. Patient reports that signs and symptoms have been present for 2 days and indicates a pain score of 10/10. MEDICAL/SURGICAL HISTORY: . Gout. None. COMPARISON: No prior [place] exams available for comparison. FINDINGS: The patient's had a total knee arthroplasty in excellent position. There is marked atherosclerotic di sease. There is a large area of sclerosis bone fragment in the posterior lateral knee. Moderate size joint effusion CONCLUSION: Total knee arthroplasty. Large bone fragment posterolateral to the knee. Electronically signed by: Mik June MD 10/13/2017 5:12 PM EDT
--- NOTE | 2017-10-13 18:24 | PD.ORT.PN ---
Subjective Subjective Remarks Patient still painful, mainly about area of lateral retinacular release. Objective Vitals Vital Signs Date Time Temp Pulse Resp B/P (MAP) Pulse Ox O2 Delivery O2 Flow Rate FiO2 10/13/17 16:00 98.2 96 16 128/77 (94) 95 10/13/17 12:00 97.6 102 16 133/75 (94) 94 10/13/17 11:30 97.6 106 18 138/64 (88) 96 10/13/17 08:00 97.4 82 16 130/67 (88) 94 10/13/17 04:00 97.9 83 16 109/77 (88) 97 10/13/17 00:00 97.4 82 16 131/76 (94) 97 10/12/17 20:15 97.2 81 17 152/89 (110) 96 I/O 10/12/17 10/12/17 10/12/17 10/13/17 10/13/17 10/13/17 07:00 15:00 23:00 07:00 15:00 23:00 Intake Total 2000 ml 360 ml 250 ml 480 ml Output Total 3100 ml 600 ml 400 ml Balance -1100 ml 360 ml -350 ml 80 ml Intake Oral 360 ml 250 ml 480 ml Other 2000 ml Output Urine Total 600 ml 400 ml Estimated Blood Loss 100 ml Other 3000 ml Bladder Scan Volume Amount 758 ml Result Diagram: 10/13/17 0431 10/13/17 0431 Imaging Last 24 hours Impressions Knee X-Ray 10/13/17 0000 Signed Impressions: CONCLUSION: Total knee arthroplasty. Large bone fragment posterolateral to the knee. Last 48 hours Impressions Knee X-Ray 10/12/17 0739 Signed Impressions: CONCLUSION: 1. Total knee arthroplasty. All 3 components are properly positioned without f racture. 2. Dense atherosclerotic calcification of the regional vasculature. 3. Amorphous calcification in the posterior knee joint. Diagnostic considerati ons include popliteal artery aneurysm or possible calcification of the regional soft tissues. CT scan of the knee could be performed for further characterizat ion if clinically warranted. Objective Remarks Pain primarily lateral and somewhat posterior. Not related to bony fragment outside of joint. Swelling from lateral release. Soft. Assessment & Plan Ortho Post Op Day #: 1 Problem List: Assessment and Plan Add flexeril for spasms. Home possibly tomorrow if more comfortable. Cont ice and elevation and wrapping knee with joy. Jeromy Christian MD Oct 13, 2017 18:24
--- NOTE | 2017-10-13 18:34 | HHI.PR ---
Subjective Remarks Follow up for Right TKA, HTN, BPH. The patient reports increased right knee pain today with difficulty ambulating. He denies any other medical complaints including no fever/chills, headache, lightheadedness, dizziness, chest pain, palpitations, shortness of breath, or abdominal complaints. He is urinating without difficulty. Last BM yesterday 10/12 at 4am prior to surgery. He is passing flatus. He is tolerating oral intake. He is hoping to be discharged tomorrow if pain improves. Objective Vitals Vital Signs Date Time Temp Pulse Resp B/P (MAP) Pulse Ox O2 Delivery O2 Flow Rate FiO2 10/13/17 16:00 98.2 96 16 128/77 (94) 95 10/13/17 12:00 97.6 102 16 133/75 (94) 94 10/13/17 11:30 97.6 106 18 138/64 (88) 96 10/13/17 08:00 97.4 82 16 130/67 (88) 94 10/13/17 04:00 97.9 83 16 109/77 (88) 97 10/13/17 00:00 97.4 82 16 131/76 (94) 97 10/12/17 20:15 97.2 81 17 152/89 (110) 96 I/O 10/12/17 10/12/17 10/12/17 10/13/17 10/13/17 10/13/17 07:00 15:00 23:00 07:00 15:00 23:00 Intake Total 2000 ml 360 ml 250 ml 480 ml Output Total 3100 ml 600 ml 400 ml Balance -1100 ml 360 ml -350 ml 80 ml Intake Oral 360 ml 250 ml 480 ml Other 2000 ml Output Urine Total 600 ml 400 ml Estimated Blood Loss 100 ml Other 3000 ml Bladder Scan Volume Amount 758 ml Result Diagram: 10/13/17 0431 10/13/17 0431 Imaging Last Impressions Knee X-Ray 10/13/17 0000 Signed Impressions: CONCLUSION: Total knee arthroplasty. Large bone fragment posterolateral to the knee. Objective Remarks GENERAL: Well-nourished, well-developed pleasant elderly male patient in [facility]. SKIN: Warm and dry. No rash. HEENT: Normocephalic. Atraumatic. Pupils equal and round. Mucous membranes pink and moist. CARDIOVASCULAR: Regular rate and rhythm. No murmur appreciated. RESPIRATORY: No accessory muscle use. Clear to auscultation. Breath sounds equal bilaterally. GASTROINTESTINAL: Abdomen soft, non-tender, nondistended. Normoactive bowel sounds x4. MUSCULOSKELETAL: No obvious deformities. Extremities without clubbing, cyanosis , or edema. Right knee with surgical dressing in place, CDI. Right foot warm with brisk capillary refill. NEUROLOGICAL: Awake and alert. No obvious cranial nerve deficits. Motor grossly within normal limits. Moving all extremities spontaneously. Normal speech. PSYCHIATRIC: Appropriate mood and affect; insight and judgment normal. Procedures 10/12/17 -right total knee arthroplasty by Dr. Christian Medications and IVs Current Medications Medications (Trade) Dose Ordered Sig/Ran Route Start Time Stop Time Status Last Admin (Lopressor) 25 mg TRANSIT PROOF MACHINE OPERATOR PRN PO 10/12/17 05:45 10/15/17 05:44 (Betadine 5% Antisepsis Kit) 1 applic TRANSIT PROOF MACHINE OPERATOR PRN EACH NARE 10/12/17 05:45 10/15/17 05:44 10/12/17 06:10 (Chlorhexidine 2% Cloth) 3 pack TRANSIT PROOF MACHINE OPERATOR PRN TOPICAL 10/12/17 05:45 10/15/17 05:44 10/12/17 05:35 (Hibiclens 4% Top Soln) 1 applic ONCE TOPICAL 10/12/17 06:00 10/15/17 05:59 10/12/17 06:11 (Zyloprim) 100 mg DAILY PO 10/12/17 09:00 10/13/17 09:32 (Ecotrin Ec) 81 mg DAILY PO 10/12/17 09:00 10/13/17 09:32 (Cymbalta Dr) 60 mg DAILY PO 10/12/17 09:00 10/13/17 09:30 (Hydrodiuril) 25 mg DAILY PO 10/12/17 09:00 10/13/17 09:32 (Flomax) 0.4 mg HS PO 10/12/17 21:00 10/12/17 20:37 (Prinivil) 40 mg DAILY PO 10/12/17 09:00 10/13/17 09:32 (Desyrel) 100 mg HS PO 10/12/17 21:00 10/12/17 20:37 Lactated Ringer's 1,000 ml @ 80 mls/hr [id number] IV 10/12/17 08:00 10/12/17 10:50 ([place] 7.5-325 Mg) 1 tab Q4H PRN PO 10/12/17 07:45 10/12/17 13:32 ([place] 7.5-325 Mg) 2 tab Q4H PRN PO 10/12/17 07:45 10/13/17 17:57 (Tylenol) 650 mg Q6H PRN PO 10/12/17 07:45 (Theragran M Tab) 1 tab BID PO 10/13/17 21:00 12/12/17 20:59 (Zofran Inj) 4 mg Q6H PRN IVP 10/12/17 07:45 (Colace) 100 mg BID PO 10/13/17 21:00 (Restoril) 15 mg HS PRN PO 10/12/17 07:45 (Bacitracin Oint Packet) 0.9 gm UNSCH X1 PRN TOP 10/14/17 10:15 10/16/17 10:14 (Narcan Inj) 0.4 mg UNSCH PRN IV PUSH 10/12/17 07:45 (Benadryl Inj) 25 mg Q6H PRN IV PUSH 10/12/17 07:45 (Eliquis) 2.5 mg BID PO 10/13/17 10:45 10/13/17 13:35 (Dilaudid Pf Inj) 1 mg Q2HR PRN IV 10/13/17 11:15 10/13/17 11:30 (Flexeril) 10 mg Q8HR PO 10/13/17 22:00 UNV A/P Problem List: (1) Status post total right knee replacement ICD Code: Z96.651 - Presence of right artificial knee joint (2) Osteoarthritis of right knee ICD Code: M17.11 - Unilateral primary osteoarthritis, right knee (3) Depression ICD Code: F32.9 - Major depressive disorder, single episode, unspecified (4) Sciatica ICD Code: M54.30 - Sciatica, unspecified side (5) Hypertension ICD Code: I10 - Essential (primary) hypertension Assessment and Plan 72-year-old male with history of TIA/CVA, HTN, BPH, depression, osteoarthritis, admitted to the hospital for right total knee arthroplasty done by Dr. Christian on 10/12/17. Hospitalist consulted for medical management. Severe osteoarthritis s/p right TKA: Surgery done 10/12/[address] Christian. -Continue management per orthopedics -Pain control with [place] prn with bowel regimen -DVT prophylaxis with Eliquis -Continue physical therapy Hypertension: Chronic, BP well-controlled -Continue patient's lisinopril 40 mg daily and HCTZ 25 mg daily -Monitor BP, adjust antihypertensives as needed BPH: Chronic -Continue patient's tamsulosin Depression: Chronic -Continue patient's duloxetine and trazodone Hx of TIA/CVA: Chronic -continue patient's aspirin 81mg daily DVT prophylaxis: On Eliquis per Ortho Discharge Planning Likely plan for discharge with [facility] tomorrow 10/14 if pain better controlled. Shea Jewell PA-C Oct 13, 2017 6:34 pm
[2017-10-13] MEDS: LACTATED RINGER'S 1000 ML INJ 1,000 ML IV SCH (19:09)
[2017-10-13] MEDS: MULTIVITAMINS/MINERALS THERAPEUTIC TAB PO SCH (19:48)
[2017-10-13] MEDS: DOCUSATE SODIUM 100 MG CAP PO SCH (19:49)
[2017-10-13] MEDS: TAMSULOSIN HCL 0.4 MG CAP PO SCH (19:49)
[2017-10-13] MEDS: traZODone HCL 100 MG TAB PO SCH (19:49)
[2017-10-13] MEDS: CYCLOBENZAPRINE HCL 10 MG TAB PO SCH (21:10)
[2017-10-13] MEDS ORDERED: MAGNESIUM HYDROXIDE SUSP 30 ML CUP PO PRN (23:45)
[2017-10-14] VITALS (7 sets, daily range): BP systolic 84–126; BP diastolic 51–66; PULSE 92–105; RESP 18; TEMP 97.1–98.2; O2SAT 91–97
[2017-10-14] MEDS: ACETAMINOPHEN/HYDROcodone 325 MG/7.5 MG TAB PO PRN ×3 (01:12→10:17)
[2017-10-14] MEDS: CYCLOBENZAPRINE HCL 10 MG TAB PO SCH ×2 (06:11→15:47)
--- NOTE | 2017-10-14 08:07 | PD.ORT.PN ---
Subjective Subjective Remarks Patient more comfortable today. Objective Vitals Vital Signs Date Time Temp Pulse Resp B/P (MAP) Pulse Ox O2 Delivery O2 Flow Rate FiO2 10/14/17 04:00 97.1 97 18 126/59 (81) 95 10/14/17 00:01 98.0 103 18 118/66 (83) 97 10/13/17 20:00 97.2 107 18 124/59 (80) 97 10/13/17 16:00 98.2 96 16 128/77 (94) 95 10/13/17 12:00 97.6 102 16 133/75 (94) 94 10/13/17 11:30 97.6 106 18 138/64 (88) 96 I/O 10/13/17 10/13/17 10/13/17 10/14/17 10/14/17 10/14/17 07:00 15:00 23:00 07:00 15:00 23:00 Intake Total 250 ml 480 ml 360 ml Output Total 600 ml 400 ml 600 ml Balance -350 ml 80 ml -240 ml Intake Oral 250 ml 480 ml 360 ml Output Urine Total 600 ml 400 ml 600 ml Result Diagram: 10/13/17 0431 10/13/17 0431 Imaging Last 24 hours Impressions Knee X-Ray 10/13/17 0000 Signed Impressions: CONCLUSION: Total knee arthroplasty. Large bone fragment posterolateral to the knee. Last 48 hours Impressions Knee X-Ray 10/12/17 0739 Signed Impressions: CONCLUSION: 1. Total knee arthroplasty. All 3 components are properly positioned without f racture. 2. Dense atherosclerotic calcification of the regional vasculature. 3. Amorphous calcification in the posterior knee joint. Diagnostic considerati ons include popliteal artery aneurysm or possible calcification of the regional soft tissues. CT scan of the knee could be performed for further characterizat ion if clinically warranted. Objective Remarks On CPM in bed. No pain at present. Min swelling. No calf tenderness. Assessment & Plan Ortho Post Op Day #: 2 Problem List: Assessment and Plan Home today if ok with PT. Jeromy Christian MD Oct 14, 2017 08:07
[2017-10-14 08:34] LABS: HEMATOCRIT 37.9 % (39.0-51.0); HEMOGLOBIN 12.6 GM/DL (13.0-17.0)
[2017-10-14] MEDS: ASPIRIN EC 81 MG TABEC PO SCH (08:53)
[2017-10-14] MEDS: APIXABAN 2.5 MG TABLET PO SCH ×2 (08:54→21:53)
[2017-10-14] MEDS: ALLOPURINOL 100 MG TAB PO SCH (08:54)
[2017-10-14] MEDS: DULoxetine HCl DR 60 MG CAP PO SCH (08:54)
[2017-10-14] MEDS: MULTIVITAMINS/MINERALS THERAPEUTIC TAB PO SCH ×2 (08:54→21:53)
[2017-10-14] MEDS: DOCUSATE SODIUM 100 MG CAP PO SCH ×2 (08:54→21:53)
[2017-10-14] MEDS: LACTATED RINGER'S 1000 ML INJ 1,000 ML IV SCH (10:00)
[2017-10-14] MEDS ORDERED: BACITRACIN OINT 0.9 GM PKT TOP PRN (10:15)
--- NOTE | 2017-10-14 11:34 | HHI.PR ---
Subjective Remarks Pt having a lot of pain after working w PT. States he had trouble getting up w PT and had to try 3 times. pain is a 10/10. Not sure if he will be able to go to PT class. No CP/SOB/N/V Objective Vitals Vital Signs Date Time Temp Pulse Resp B/P (MAP) Pulse Ox O2 Delivery O2 Flow Rate FiO2 10/14/17 08:00 97.7 97 18 97/58 (71) 91 10/14/17 04:00 97.1 97 18 126/59 (81) 95 10/14/17 00:01 98.0 103 18 118/66 (83) 97 10/13/17 20:00 97.2 107 18 124/59 (80) 97 10/13/17 16:00 98.2 96 16 128/77 (94) 95 10/13/17 12:00 97.6 102 16 133/75 (94) 94 I/O 10/13/17 10/13/17 10/13/17 10/14/17 10/14/17 10/14/17 07:00 15:00 23:00 07:00 15:00 23:00 Intake Total 250 ml 480 ml 360 ml Output Total 600 ml 400 ml 600 ml Balance -350 ml 80 ml -240 ml Intake Oral 250 ml 480 ml 360 ml Output Urine Total 600 ml 400 ml 600 ml Result Diagram: 10/14/17 0707 10/13/17 0431 Imaging Last Impressions Knee X-Ray 10/13/17 0000 Signed Impressions: CONCLUSION: Total knee arthroplasty. Large bone fragment posterolateral to the knee. Objective Remarks GENERAL: laying in bed, appears uncomfortable. SKIN: incision healing well. no signs of infection CARDIOVASCULAR: Regular rate and rhythm. No murmur appreciated. RESPIRATORY: No accessory muscle use. Clear to auscultation. Breath sounds equal bilaterally. GASTROINTESTINAL: Abdomen soft, non-tender, nondistended. Normoactive bowel sounds x4. MUSCULOSKELETAL: Right knee with surgical dressing in place, CDI. able to wiggle his toes. sensation is intact NEUROLOGICAL: Awake and alert. Normal speech. Procedures 10/12/17 -right total knee arthroplasty by Dr. Christian A/P Problem List: (1) Status post total right knee replacement ICD Code: Z96.651 - Presence of right artificial knee joint (2) Osteoarthritis of right knee ICD Code: M17.11 - Unilateral primary osteoarthritis, right knee (3) Depression ICD Code: F32.9 - Major depressive disorder, single episode, unspecified (4) Sciatica ICD Code: M54.30 - Sciatica, unspecified side (5) Hypertension ICD Code: I10 - Essential (primary) hypertension Assessment and Plan 72-year-old male with history of TIA/CVA, HTN, BPH, depression, osteoarthritis, admitted to the hospital for right total knee arthroplasty done by Dr. Christian on 10/12/17. Hospitalist consulted for medical management. Severe osteoarthritis s/p right TKA: Surgery done 10/12/[address] Christian. -Continue management per orthopedics -Pain control with [place] prn with bowel regimen -DVT prophylaxis with Eliquis -Continue physical therapy Pain not well controlled when I evaluated him. I spoke w RN and she will be giving him some IV dilaudid for breakthrough pain. Hypertension: Chronic, BP well-controlled -Continue patient's lisinopril 40 mg daily and HCTZ 25 mg daily -Monitor BP, adjust antihypertensives as needed BPH: Chronic -Continue patient's tamsulosin Depression: Chronic -Continue patient's duloxetine and trazodone Hx of TIA/CVA: Chronic -continue patient's aspirin 81mg daily DVT prophylaxis: On Eliquis per Ortho Discharge Planning Per primary team. Marla Wright MD Oct 14, 2017 11:34
[2017-10-14] MEDS: HYDROmorphone HCL PF 2 MG/ML VIAL IV PRN ×2 (11:48→19:53)
[2017-10-14] MEDS: HYDROCHLOROTHIAZIDE 25 MG TAB PO SCH (11:52)
[2017-10-14] MEDS: LISINOPRIL 20 MG TAB PO SCH (11:52)
[2017-10-14] MEDS: TAMSULOSIN HCL 0.4 MG CAP PO SCH (21:53)
[2017-10-15 03:00] VITALS: BP 117/73; PULSE 104; RESP 18; TEMP 97.6; O2SAT 95
[2017-10-15] MEDS: ACETAMINOPHEN/HYDROcodone 325 MG/7.5 MG TAB PO PRN ×2 (03:14→09:12)
[2017-10-15] MEDS: CYCLOBENZAPRINE HCL 10 MG TAB PO SCH (06:00)
[2017-10-15] MEDS: ALLOPURINOL 100 MG TAB PO SCH (09:00)
[2017-10-15 09:01] VITALS: BP 126/59; PULSE 112; RESP 18; TEMP 98; O2SAT 99
[2017-10-15] MEDS: LISINOPRIL 20 MG TAB PO SCH (09:06)
[2017-10-15] MEDS: APIXABAN 2.5 MG TABLET PO SCH (09:06)
[2017-10-15] MEDS: ASPIRIN EC 81 MG TABEC PO SCH (09:06)
[2017-10-15] MEDS: HYDROCHLOROTHIAZIDE 25 MG TAB PO SCH (09:07)
[2017-10-15] MEDS: DOCUSATE SODIUM 100 MG CAP PO SCH (09:07)
[2017-10-15] MEDS: MULTIVITAMINS/MINERALS THERAPEUTIC TAB PO SCH (09:07)
[2017-10-15] MEDS: DULoxetine HCl DR 60 MG CAP PO SCH (09:11)
--- NOTE | 2017-10-15 09:58 | PD.ORT.PN ---
Subjective Subjective Remarks Patient much more comfortable today and ready for discharge to home. Objective Vitals Vital Signs Date Time Temp Pulse Resp B/P (MAP) Pulse Ox O2 Delivery O2 Flow Rate FiO2 10/15/17 09:01 98.0 112 18 126/59 (81) 99 10/15/17 07:44 Room Air 10/15/17 03:00 97.6 104 18 117/73 (88) 95 10/14/17 23:05 98.2 101 18 99/61 (74) 94 10/14/17 19:48 97.8 105 18 102/65 (77) 96 10/14/17 16:00 97.2 95 18 84/51 (62) 94 10/14/17 12:00 98.2 92 18 116/56 (76) 93 I/O 10/14/17 10/14/17 10/14/17 10/15/17 10/15/17 10/15/17 07:00 15:00 23:00 07:00 15:00 23:00 Intake Total 360 ml 600 ml 460 ml 0 ml Output Total 600 ml 675 ml Balance -240 ml 600 ml -215 ml 0 ml Intake Oral 360 ml 600 ml 360 ml IV Total 100 ml 0 ml Output Urine Total 600 ml 675 ml # Voids 2 # Bowel Movements 0 Result Diagram: 10/14/17 0707 10/13/17 0431 Imaging Last 24 hours Impressions Knee X-Ray 10/13/17 0000 Signed Impressions: CONCLUSION: Total knee arthroplasty. Large bone fragment posterolateral to the knee. Last 48 hours Impressions Knee X-Ray 10/12/17 0739 Signed Impressions: CONCLUSION: 1. Total knee arthroplasty. All 3 components are properly positioned without f racture. 2. Dense atherosclerotic calcification of the regional vasculature. 3. Amorphous calcification in the posterior knee joint. Diagnostic considerati ons include popliteal artery aneurysm or possible calcification of the regional soft tissues. CT scan of the knee could be performed for further characterizat ion if clinically warranted. Objective Remarks Sitting up at present in chair.. No pain at present. Min swelling. No calf tenderness. Assessment & Plan Ortho Post Op Day #: 3 Problem List: Assessment and Plan Home today. Jeromy Christian MD Oct 15, 2017 09:58
[2017-10-15] MEDS: LACTATED RINGER'S 1000 ML INJ 1,000 ML IV SCH (11:00)
== END 2017-10-15 14:17 | disposition home health service (06) ==
LOC: HSDC 05:19 → HSDI 07:42 → N06B 12:07
PROVIDERS: ADMIT Surgery; ATTEND Surgery
DX: M21.061 Valgus deformity, not elsewhere classified, right knee (principal); M17.11 Unilateral primary osteoarthritis, right knee; Z79.899 Other long term (current) drug therapy; M25.861 Other specified joint disorders, right knee
CPT/HCPCS: 01400; 27447; 73560; 73564; 80053; 83036; 83735; 84100; 84439; 84443; 85014; 85018; 85025; 86850; 86900; 86901; 94150; 96365; 96366; 96375; 96376; 97110; 97116; 97150; 97162; 97167; 97530; C1776; C9290; G0378; G8987; G8988; J0690; J1100; J1170; J2250; J2370; J3010; J3370; J7120; L1830